=== PATIENT | male | born 1995 | race Caucasian/White ===

== ENCOUNTER 2024-12-27 02:39 | Emergency (ER) | payer MEDICAID ==
[~2024-12-27] VITALS: Ht 188 cm; Wt 92.0 kg
[2024-12-27 02:45] VITALS: TEMP 98.4
[2024-12-27 03:04] LABS: BASOPHILS # (AUTO) 0.1 X10'3 (0-0.2); BASOPHILS % (AUTO) 0.6 % (0-1); EOSINOPHILS # (AUTO) 0.2 X10'3 (0-0.9); EOSINOPHILS % (AUTO) 2.4 % (0-6); HEMATOCRIT 47.7 % (42.0-52.0); HEMOGLOBIN 16.2 g/dl (14.0-17.9); LYMPHOCYTES # (AUTO) 3.4 X10'3 (1.1-4.8); LYMPHOCYTES % (AUTO) 34.1 % (21-51); MEAN CORPUSCULAR HEMOGLOBIN 30.8 PG (27.0-31.0); MEAN CORPUSCULAR VOLUME 90.6 FL (78-98); MEAN PLATELET VOLUME 7.9 FL (7.4-10.4); MONOCYTES # (AUTO) 0.7 X10'3 (0-0.9); MONOCYTES % (AUTO) 6.9 % (2-12); NEUTROPHILS # (AUTO) 5.6 X10'3 (1.8-7.7); PLATELET COUNT 361 X10'3 (140-440); RED BLOOD COUNT 5.26 X10'6 (4.70-6.10); WHITE BLOOD COUNT 10.1 X10'3 (4.5-11.0)
[2024-12-27] MEDS ORDERED: GABA-1405 (03:08)
[2024-12-27] MEDS ORDERED: SERT-433 PO (03:08)
[2024-12-27] MEDS ORDERED: ESCI-8 PO (03:08)
[2024-12-27 03:12] LABS: BILIRUBIN,URINE NEGATIVE (Neg); CLARITY,URINE CLEAR (Clear); COLOR,URINE YELLOW (Yellow); GLUCOSE, URINE NEGATIVE (Neg); KETONES,URINE NEGATIVE (Neg); LEUKOCYTE ESTERASE ,URINE NEGATIVE (Neg); NITRITES, URINE NEGATIVE (Neg); OCCULT BLOOD,URINE TRACE-INTACT (Neg); PROTEIN,URINE TRACE mg/dl (Neg); UROBILINOGEN,URINE 0.2 E.U/dL (0.2-1.0)
[2024-12-27 03:14] LABS: UA COLLECTION TYPE CLN CATCH MIDSTREAM
[2024-12-27 03:21] LABS: BACTERIA,URINE NONE SEEN /HPF (Neg); RBC,URINE 0-2 /HPF (0-2); SQUAMOUS EPITHELIAL CELL,UR FEW /LPF (FEW); WBC,URINE 0-4 /HPF (0-4)
[2024-12-27 03:25] LABS: ALBUMIN 4.2 G/DL (3.4-5.0); ANION GAP 23 (8-16); BLOOD UREA NITROGEN 26 MG/DL (7-18); BUN/CREATININE RATIO 19.5 (10.0-20.0); CALCIUM 9.2 MG/DL (8.5-10.1); CHLORIDE 102 MMOL/L (99-107); CREATININE 1.33 MG/DL (0.60-1.10); ETHANOL 170 MG/DL (<10); GLUCOSE 93 MG/DL (70-104); POTASSIUM 3.7 MMOL/L (3.5-5.1); SODIUM 142 MMOL/L (135-145); THYROID STIMULATING HORMONE 3.09 ulU/ml (0.34-4.50); eCRCL 94 ML/MIN; eGFR 63 ML/MIN
[2024-12-27 03:31] LABS: URINE AMPHETAMINE SCREEN NEGATIVE (Neg); URINE BARBITUATE SCREEN NEGATIVE (Neg); URINE BENZODIAZEPINES SCREEN NEGATIVE (Neg); URINE CANNABINOID SCREEN NEGATIVE (Neg); URINE COCAINE SCREEN POSITIVE (Neg); URINE METHADONE SCREEN NEGATIVE (Neg); URINE OPIATE SCREEN NEGATIVE (Neg); URINE PHENCYCLIDINE SCREEN NEGATIVE (Neg)
[2024-12-27 05:36] VITALS: BP 124/67; PULSE 69; O2SAT 98
[2024-12-27 07:09] VITALS: RESP 16
== END 2024-12-27 15:55 | disposition home or self-care (01) ==
LOC: ER 02:39
DX: R45.851 Suicidal ideations (principal); F10.129 Alcohol abuse with intoxication, unspecified; Z20.822 Contact with and (suspected) exposure to COVID-19; Y90.9 Presence of alcohol in blood, level not specified
CPT/HCPCS: 36415; 80048; 80305; 80320; 81001; 84443; 85025; 87811; 99283; 99285

== ENCOUNTER 2025-02-07 23:53 | Emergency (ER) | payer MEDICAID ==
[~2025-02-07] VITALS: Ht 188 cm; Wt 97.7 kg
[~2025-02-07 23:53] MED LIST: ESCI-8 PO; GABA-1405; SERT-433 PO
[2025-02-08] VITALS: TEMP 98.4
[2025-02-08 00:09] VITALS: BP 106/65; PULSE 113; RESP 16; O2SAT 98
[2025-02-08] MEDS: bacitracin 15gm ointment TP ONE (00:17)
== END 2025-02-08 00:25 ==
LOC: ER 23:54
DX: S01.81XA Laceration without foreign body of other part of head, initial encounter (principal); Z79.899 Other long term (current) drug therapy; Y04.8XXA Assault by other bodily force, initial encounter; Y93.89 Activity, other specified; Y92.89 Other specified places as the place of occurrence of the external cause; Y99.8 Other external cause status
CPT/HCPCS: 99283

== ENCOUNTER 2025-03-07 11:31 | Emergency (ER) | payer MEDICAID ==
[~2025-03-07] VITALS: Ht 188 cm; Wt 104.6 kg
--- NOTE | 2025-03-07 12:36 | Physician Documentation ---
History of Present Illness ~ Chief Complaint: Medical Clearance Stated Complaint: MED CLEARANCE Time Seen by MD: 12:15 OK to notify your PCP?: Yes Source: patient Mode of Arrival: POV Exam Limitations: no limitations HPI 29-year-old male with chief complaint needing clearance for [facility]. Patient states he is going there due to alcoholism. He last drank last night to servings of alcohol. He states the last time he drank heavily was about a week ago where he had 10 servings of alcohol. He states he has been gradually trying to decrease his who has of alcohol. He denies any history of alcohol withdrawal seizures. He states besides alcohol he uses cocaine occasionally but states the cocaine is not something that I really have a problem with it is alcohol but I have a problem with." No recent illnesses. He reports he has a little tremor from not drinking alcohol but otherwise denies any symptoms. No hallucinations no delirium. Tetanus within 5 years?: No Medication Reconciliation Allergies: Uncoded Allergies: SULFA (Allergy, Intermediate, HIVES, 02/08/25) Scheduled Escitalopram Oxalate (Escitalopram Oxalate), 1 TAB PO DAILY, (Reported) Sertraline HCl (Sertraline HCl), 1 TAB PO DAILY, (Reported) Miscellaneous Medications Gabapentin (Gabapentin), (Reported) Past Medical History Past Medical History: No Pertinent History Past Surgical History: noncontributory Alcohol Use: Heavy Drug Use: cocaine Review of Systems All Other Systems at this time: Reviewed and Negative Physical Exam Vital Signs: Temperature: 98.4, Source: Oral, Heart Rate: 81, Respiratory Rate: 16, BP: 139/89, Pulse Oximetry: 97, Weight: 104.600 Oxygen Flow Rate: 0 Physical Exam General Appearance: Alert, WD/WN. NAD. HEENT: NCAT, PERRL, EOMI. Neck: Supple, trachea midline. Cardiovascular: RRR. No m/r/g. Lungs: CTAB. Breathing unlabored Extremities: Normal inspection. No edema. Skin: Warm/dry, normal color Neurological: Alert and oriented x4, normal gait. Psychiatric: Affect congruent with mood. Progress Results/Orders Results/Orders Vital Signs 03/07/25 11:41 Temp 98.4 Pulse 81 Resp 16 B/P (MAP) 139/89 Pulse Ox 97 O2 Flow Rate 0 Medical Decision Making Differential Dx:Considerations: Include: Intoxication-Alcohol, Intoxication- Other drug, Personality disorder, Substance abuse disorder, Acute delirium, Closed head injury, Cervical spine injury, Skull fracture, Fracture(s), Abrasion, Contusion, Foreign body, Hematoma, Laceration, Alcohol withdrawl syndrom, Encephalopathy, Hepatitis, Medically stable Departure Time of Disposition: 12:36 Disposition: 01 HOME / SELF CARE / HOMELESS Impression: Primary Impression: Alcoholism Condition: Stable Discharge Instructions: Medical Screening Exam Additional Instructions: You are medically cleared for [facility] Referrals: NO PRIMARY CARE PROVIDER (PCP) Education Educated: Patient Educated regarding: diagnosis, treatment, need for follow up Signature Scribe Signature: x Attestation: RU Ramos March 07, 2025 12:36
[2025-03-07 12:49] VITALS: BP 140/86; PULSE 73; RESP 17; TEMP 98.4; O2SAT 99
== END 2025-03-07 12:50 | disposition home or self-care (01) ==
LOC: ER 11:32
DX: F10.20 Alcohol dependence, uncomplicated (principal); F14.90 Cocaine use, unspecified, uncomplicated; Z79.899 Other long term (current) drug therapy
CPT/HCPCS: 99281